=== PATIENT | female | born 1945 ===

== ENCOUNTER → 2018-08-07 | Outpatient (CLI) | payer MEDICARE, OTHER ==
--- NOTE | 2018-08-07 18:58 | WOMENS IMAGING REPORT ---
EXAM DESCRIPTION: BILAT SCREENING MAMMO W/CAD COMPLETED DATE/TIME: 08/07/2018 10:44 am REASON FOR STUDY: BILATERAL SCREENING MAMMO/Z12.31 Z12.31 ENCNTR SCREEN MAMMOGRAM FOR MALIGNANT WILFRED PLASM OF MELANIE COMPARISON: None available TECHNIQUE: Standard craniocaudal and mediolateral oblique views of each breast recorded using Truminima l acquisition. LIMITATIONS: None. FINDINGS: No masses, calcifications or architectural distortion. No areas of suspicion. Read with the assistance of CAD. .[facility] - R2 Cenova Version 1.3 .[facility] - R2 Cenova Version 1.3 .[facility] - R2 Cenova Version 2.4 .[facility] [place] Cenova Version 2.4 .[facility] - R2 [employer] Version 9.2 IMPRESSION: NORMAL MAMMOGRAM. BIRADS 1. BREAST DENSITY: b. There are scattered areas of fibroglandular density. BIRAD: 1 NEGATIVE RECOMMENDATION: ROUTINE SCREENING Please continue yearly bilateral screening mammography/tomosynthesis in July 2019 COMMENT: The patient has been notified of the results by letter per SA requirements. Additional no tification policies are in place for contacting patient with suspicious or incomplete findings. Quality ID #[id number]: The [employer] recommends an annual screening mammogram for women aged 40 years or over. This facility utilizes a reminder system to ensure that all patients receive reminder letters, and/or direct phone calls for appointments. This includes reminders for routine scr eening mammograms, diagnostic mammograms, or other Breast Imaging Interventions when appropriate. Th is patient will be placed in the appropriate reminder system. The [employer] (A[employer]) has developed recommendations for screening MRI of the breast s in certain patient populations, to be used in conjunction with mammography. Breast MRI surveillanc e may be appropriate for women with more than 20% lifetime risk of developing breast cancer as deter mined by genetic testing, significant family history of the disease, or history of mantle radiation f or Hodgkins Disease. ACR Practice Guidelines 2008. TECHNICAL DOCUMENTATION: FINDING NUMBER: (1) ASSESSMENT: (1) JOB ID: [id number] [employer]- All Rights Reserved Reading location - IP/workstation name: [email or web address]
== END ==
LOC: WI 10:04
PROVIDERS: ATTEND Family Medicine
DX: Z12.31 Encounter for screening mammogram for malignant neoplasm of breast (principal)
CPT/HCPCS: 77067

== ENCOUNTER 2020-02-19 15:42 | Emergency (ER) | payer MEDICARE ==
[2020-02-19] MEDS ORDERED: IPRATROPIUM/ALBUTEROL 0.5-2.5 MG/3 ML AMPUL NEB ONE ×2 (16:14→17:25)
--- NOTE | 2020-02-19 16:22 | ER Document Report ---
ED Respiratory Problem - General Chief Complaint: Shortness Of Breath Stated Complaint: SHORTNESS OF BREATH Time Seen by Provider: 02/19/20 15:57 Primary Care Provider: MERCY ZABALA MD [ACTIVE STAFF] - Follow up as needed LOUISE ATWOOD MD [ACTIVE PROVISIONAL STAFF] - Follow up as needed Notes: CHIEF COMPLAINT: Shortness of breath for 1 month HPI: 74-year-old female with history of hypertension and high cholesterol presenting to the emergency department complaining of progressive dyspnea with exertional activities over the last month. Patient has noticed wheezing over the last week. No fever. No known exposures to COVID positive patient's or recent travel. Denies leg pain. Denies any chest pain. States that she does have to go upstairs to get to her residence and has noticed increasing diffi culty with any exertion where she has to now stop and rest. States she has never seen a contracts intern and has never had a stress test. ROS: See HPI - all other systems were reviewed and are otherwise negative Constitutional: no fever Eyes: no drainage, no blurred vision ENT: no runny nose, no sore throat Cardiovascular: no chest pain Resp: + SOB, no cough GI: no vomiting, no diarrhea, no abdominal pain : no dysuria Integumentary: no rash Allergy: no hives Musculoskeletal: no extremity pain or swelling Neurological: no numbness/tingling, no weakness MEDICATIONS: I agree with the patient medications as charted by the RN. ALLERGIES: I agree with the allergies as charted by the RN. PAST MEDICAL HISTORY/PAST SURGICAL HISTORY: Reviewed and agree as charted by RN. SOCIAL HISTORY: Reviewed and agree as charted by RN. FAMILY HISTORY: No significant familial comorbid conditions directly related to patient complaint EXAM: Reviewed vital signs as charted by RN. CONSTITUTIONAL: Alert and oriented and responds appropriately to questions. Well-appearing; well-nourished HEAD: Normocephalic; atraumatic EYES: PERRL; Conjunctivae clear, sclerae non-icteric ENT: normal nose; no rhinorrhea; moist mucous membranes; pharynx without lesions noted, no uvula edema or deviation, no tonsillar hypertrophy, phonation normal NECK: Supple without meningismus; non-tender; no cervical lymphadenopathy, no masses CARD: RRR; no murmurs, no clicks, no rubs, no gallops; symmetric distal pulses RESP: Normal chest excursion without splinting or tachypnea; breath sounds noted to have wheezing on the right side, no rhonchi, no rales, pulse oximetry 93% on room air mildly hypoxic ABD/GI: Normal bowel sounds; non-distended; soft, non-tender, no rebound, no guarding; no palpable organomegaly or masses. BACK: The back appears normal and is non-tender to palpation, there is no CVA tenderness EXT: Normal ROM in all joints; non-tender to palpation; no cyanosis, no effusions, no edema SKIN: Normal color for age and race; warm; dry; good turgor; no acute lesions noted NEURO: Moves all extremities equally; Motor and sensory function intact PSYCH: The patient's mood and manner are appropriate. Grooming and personal hygiene are appropriate. MDM: 74-year-old female presenting with increasing dyspnea with exertional activities without chest pain over the last month, wheezing over the last week. Will obtain screening cardiac labs, has never had a stress test or other cardiac evaluation per the patient. Mildly dyspneic with speaking. Will give breathing treatment. Likely need admission for further evaluation TRAVEL OUTSIDE OF THE [place] IN LAST 30 DAYS: No Past Medical History - Social History Smoking Status: Unknown if Ever Smoked Family History: Reviewed & Not Pertinent Patient has homicidal ideation: No - Past Medical History Cardiac Medical History: Reports: Hx Hypertension Physical Exam - Vital signs Vitals: Resp Pulse Ox 19 94 02/19/20 15:43 02/19/20 15:43 Course - Re-evaluation Re-evalutation: 02/19/20 17:[address] valentin attending. Patient does feel slightly better after breathing treatment, still with wheezing on the right side. Chest x-ray suggests COPD exacerbation. Her initial cardiac screening labs are all normal. Discussed at length with the patient. Will give additional breathing treatment and steroids. Will have nursing ambulate the patient to reassess breathing. If patient still very dyspneic will likely need admission, if patient feels much better after steroids and breathing treatments will consider discharge with close follow-up 02/19/20 18:29 Patient ambulated to the bathroom and her pulse oximetry dropped to 88% on room air and she was mildly dyspneic. Will admit for COPD exacerbation 05/22/20 18:35 I spoke with Sylvia King the nurse practitioner with the hospitalist service. She still wishes the nurses to ambulate the patient in the hallway document the heart rate and pulse oximetry to see if it is sustained at which point patient can be admitted 02/19/20 18:45 Nursing ambulated the patient up and down the scruggs her pulse oximetry was 86% while ambulating, her heart rate was 115. Patient's pulse oximetry at rest improved to 91% on room air. Spoke with Sylvia, she will let Dr. Mukherjee the nighttime hospitalist know about the patient to have him call me to discuss. 02/19/20 20:[address] Mukherjee the hospitalist, we reviewed the patient's case including her pulse oximetry, clinical course. He does not feel patient warrants admission at this time. He believes that given the patient's quick recovery of her pulse oximetry after her walk that she can lightly tolerate steroids, inhalers at home over the next 2 days with reassessment or return if condition worsens. Does not wish to admit the patient at this time. Discussed at length with Dr. valentin attending. 02/19/20 20:32 I spoke with the patient at length. Pulse oximetry 93 to 94% at rest. Still slight wheezing on the right side. We discussed admission versus going home patient would prefer to go home if possible. Patient has been given steroids here will write patient for steroids at home per the hospitalist recommendation. Will give patient an inhaler here with a spacer with instructions on how to use it. Patient is aware that if she does not feel better within 48 hours she should return for reevaluation. Patient second troponin was normal. Patient has a primary care provider for close follow-up in 4 days if she is feeling better. Patient is comfortable with this plan. - Vital Signs Vital signs: Temp Pulse Resp BP Pulse Ox 98.4 F 19 157/85 H 93 02/19/20 16:02 02/19/20 18:41 02/19/20 18:41 02/19/20 18:40 - Laboratory Result Diagrams: 02/19/20 15:45 02/19/20 15:45 Laboratory results interpreted by me: 02/19/20 02/19/20 02/19/20 15:45 15:45 17:37 Eos % (Auto) 6.6 H Calcium 10.4 H Direct Bilirubin 0.6 H Urine Ketones TRACE H Ur Leukocyte Esterase MODERATE H Discharge - Discharge Clinical Impression: COPD exacerbation Dyspnea Qualifiers: Dyspnea type: dyspnea on exertion Qualified Code(s): R06.00 - Dyspnea, unspecified Condition: Stable Disposition: HOME, SELF-CARE Instructions: Bronchospasm ([facility]) Additional Instructions: Use the albuterol inhaler with a spacer 4 puffs every 4 hours for shortness of breath and wheezing. Take the steroids as prescribed. Follow-up with your primary care provider in 4 days for reevaluation of your symptoms if you are feeling better. If you have worsening symptoms return within the next 24 to 48 hours for reevaluation as discussed. You have also been given a referral to cardiology for further evaluation call to obtain appointment Prescriptions: Prednisone [Deltasone 20 mg Tablet] 2 tab PO DAILY 5 Days #10 tablet Albuterol Sulfate [Proair HFA Inhalation Aerosol 8.5 gm MDI] 2 puff IH Q4H PRN #1 mdi PRN Reason: Referrals: MERCY ZABALA MD [ACTIVE STAFF] - Follow up as needed LOUISE ATWOOD MD [ACTIVE PROVISIONAL STAFF] - Follow up as needed
[2020-02-19 16:26] LABS: INTERNATIONAL RATION (INR) 0.97; PROTHROMBIN TIME 12.8 SEC (11.4-15.4)
[2020-02-19 16:28] LABS: ALBUMIN 4.7 g/dL (3.5-5.0); ALKALINE PHOSPHATASE 91 U/L (38-126); ANION GAP 10 (5-19); ASPARTATE AMINO TRANSFERASE 26 U/L (14-36); BILIRUBIN,DIRECT 0.6 mg/dL (0.0-0.4); BILIRUBIN,TOTAL 0.6 mg/dL (0.2-1.3); BLOOD UREA NITROGEN 12 mg/dL (7-20); CALCIUM 10.4 mg/dL (8.4-10.2); CARBON DIOXIDE 28 mmol/L (22-30); CHLORIDE 100 mmol/L (98-107); GLUCOSE 106 mg/dL (75-110)
[2020-02-19 16:29] LABS: ABSOLUTE BASOPHILS # (AUTO) 0.1 10^3/uL (0.0-0.2); ABSOLUTE EOSINOPHILS # (AUTO) 0.5 10^3/uL (0.0-0.6); ABSOLUTE LYMPHOCYTES (AUTO) 1.7 10^3/uL (0.5-4.7); ABSOLUTE MONOCYTES (AUTO) 0.8 10^3/uL (0.1-1.4); ABSOLUTE NEUT (AUTO) 4.6 10^3/uL (1.7-8.2); BASOPHILS % (AUTO) 1.4 % (0-2); EOSINOPHILS % (AUTO) 6.6 % (0-6); HEMATOCRIT 43.1 % (36.0-47.0); HEMOGLOBIN 14.4 g/dL (12.0-15.5); LYMPHOCYTES % (AUTO) 22.1 % (13-45); MEAN CORPUSCULAR HEMOGLOBIN 30.8 pg (27.0-33.4); MEAN CORPUSCULAR HGB CONC 33.4 g/dL (32.0-36.0); MEAN CORPUSCULAR VOLUME 92 fl (80-97); MONOCYTES % (AUTO) 10.4 % (3-13); PLATELET COUNT 270 10^3/uL (150-450); RED BLOOD COUNT 4.67 10^6/uL (3.72-5.28); RED CELL DISTRIBUTION WIDTH 12.9 % (11.5-14.0); SEGMENTED NEUTROPHILS % (AUTO) 59.5 % (42-78); TOTAL CELLS COUNTED % (AUTO) 100 %; WHITE BLOOD COUNT 7.7 10^3/uL (4.0-10.5)
[2020-02-19 16:40] LABS: D-DIMER 0.27 ug/mL (0.00-0.50); NT PRO BNP 35 pg/mL (<450)
[2020-02-19 16:46] LABS: TROPONIN I < 0.012 ng/mL
--- NOTE | 2020-02-19 17:00 | RADIOLOGY REPORT (SQ) ---
EXAM DESCRIPTION: CHEST SINGLE VIEW IMAGES COMPLETED DATE/TIME: 02/19/2020 4:34 pm REASON FOR STUDY: sob COMPARISON: None. NUMBER OF VIEWS: One view. TECHNIQUE: Single frontal radiographic view of the chest acquired. LIMITATIONS: None. FINDINGS: LUNGS AND PLEURA: No opacities, masses or pneumothorax. No pleural effusion. Attenuated bl ood vessels and flattened giuliano-diaphragms. MEDIASTINUM AND HILAR STRUCTURES: No masses. Contour normal. HEART AND VASCULAR STRUCTURES: Heart normal in size. Normal vasculature. BONES: No acute findings. HARDWARE: None in the chest. OTHER: No other significant finding. IMPRESSION: COPD. NO ACUTE RADIOGRAPHIC FINDING IN THE CHEST. TECHNICAL DOCUMENTATION: JOB ID: [id number] 2010 [employer]- All Rights Reserved Reading location - IP/workstation name: [email or web address]
[2020-02-19] MEDS ORDERED: PREDNISONE 20 MG TABLET PO ONE (17:15)
[2020-02-19 18:25] LABS: APPEARANCE,URINE SLIGHTLY-CLOUDY; BILIRUBIN,URINE NEGATIVE (NEGATIVE); COLOR,URINE AMBER; GLUCOSE, URINE NEGATIVE (NEGATIVE); KETONES,URINE TRACE mg/dL (NEGATIVE); LEUKOCYTE ESTERASE,URINE MODERATE (NEGATIVE); NITRITE,URINE NEGATIVE (NEGATIVE); PROTEIN,URINE NEGATIVE (NEGATIVE); URINE SPECIFIC GRAVITY 1.012; UROBILINOGEN,URINE NEGATIVE mg/dL (<2.0)
--- NOTE | 2020-02-19 18:51 | EKG REPORT ---
SEVERITY:- BORDERLINE ECG - SINUS RHYTHM CONSIDER ANTERIOR INFARCT : Confirmed by: Colleen Cooper MD 19-Feb-2020 18:49:19
[2020-02-19] MEDS ORDERED: ALBUTEROL SULFATE HFA (90 MCG/PUFF) 8 GM MDI (1 MDI/ER DISP) IH SCH (20:45)
[2020-02-19 21:42] VITALS: BP 157/77
== END 2020-02-19 21:43 | disposition home or self-care (01) ==
LOC: ER 15:42
DX: J44.1 Chronic obstructive pulmonary disease with (acute) exacerbation (principal); R06.00 Dyspnea, unspecified; R06.02 Shortness of breath; I10 Essential (primary) hypertension
CPT/HCPCS: 93005; 94640 ×2; 99284; 36415; 85025; 85610; 80053; 81001; 84484; 85379; 83880; 71045; 93010; U0003; A9270 ×2; 87635; J7512; J7620

== ENCOUNTER 2020-07-11 07:15 | Emergency (ER) | payer MEDICARE ==
--- NOTE | 2020-07-11 08:04 | EKG REPORT ---
SEVERITY:- BORDERLINE ECG - SINUS RHYTHM BORDERLINE R WAVE PROGRESSION, ANTERIOR LEADS BORDERLINE T ABNORMALITIES, ANT-LAT LEADS : Confirmed by: Tito Herrera 11-Jul-2020 08:04:29
[2020-07-11 08:25] LABS: ABSOLUTE BASOPHILS # (AUTO) 0.1 10^3/uL (0.0-0.2); ABSOLUTE EOSINOPHILS # (AUTO) 0.8 10^3/uL (0.0-0.6); ABSOLUTE LYMPHOCYTES (AUTO) 1.1 10^3/uL (0.5-4.7); ABSOLUTE MONOCYTES (AUTO) 0.7 10^3/uL (0.1-1.4); ABSOLUTE NEUT (AUTO) 5.4 10^3/uL (1.7-8.2); BASOPHILS % (AUTO) 1.1 % (0-2); HEMATOCRIT 41.4 % (36.0-47.0); LYMPHOCYTES % (AUTO) 14.1 % (13-45); MEAN CORPUSCULAR HEMOGLOBIN 30.5 pg (27.0-33.4); MEAN CORPUSCULAR HGB CONC 33.9 g/dL (32.0-36.0); MEAN CORPUSCULAR VOLUME 90 fl (80-97); MONOCYTES % (AUTO) 8.2 % (3-13); PLATELET COUNT 292 10^3/uL (150-450); RED BLOOD COUNT 4.59 10^6/uL (3.72-5.28); SEGMENTED NEUTROPHILS % (AUTO) 66.6 % (42-78); TOTAL CELLS COUNTED % (AUTO) 100 %; WHITE BLOOD COUNT 8.1 10^3/uL (4.0-10.5)
--- NOTE | 2020-07-11 08:32 | ER Document Report ---
ED Respiratory Problem - General Chief Complaint: Shortness Of Breath Stated Complaint: SHORT OF BREATH,COUGH,HEADACHE Time Seen by Provider: 07/11/20 07:55 Primary Care Provider: ALE SKINNER PA-C [Primary Care Provider] - Follow up as needed Notes: HPI: 75-year-old female with a long smoking history presents today with some "wheezing" and shortness of breath this morning. She denies any chest pain, fever, calf pain or leg swelling. She is not on oxygen at home. She states she has never been diagnosed with emphysema. She states she had a previous presentation and was evaluated here. She has not taken any nebulizers at this time. ROS: See HPI All other review of systems reviewed and otherwise negative Reviewed vital signs and nursing note as charted by RN. PHYSICAL EXAM: CONSTITUTIONAL: Alert and oriented and responds appropriately to questions. Well-appearing; well-nourished HEAD: Normocephalic; atraumatic EYES: PERRL; Conjunctivae clear, sclerae non-icteric ENT: Normal nose; no rhinorrhea; moist mucous membranes; pharynx without lesions noted NECK: Supple without meningismus; non-tender; no cervical lymphadenopathy, no masses CARD: Regular rate and rhythm with a heart rate currently of 88; no murmurs; symmetric distal pulses RESP: Normal chest excursion without splinting or tachypnea; breath sounds clear and equal bilaterally; bilateral wheezing without rhonchi or rales ABD/GI: Normal bowel sounds; non-distended; soft, non-tender; no palpable organomegaly or masses BACK: The back appears normal and is non-tender to palpation EXT: Normal ROM in all joints; non-tender to palpation; no edema SKIN: No acute lesions noted NEURO: CN 2-12 intact; 5/5 bilateral upper and lower extremity strength with sensation intact to light touch PSYCH: The patient's mood and manner are appropriate. Grooming and personal hygiene are appropriate. TRAVEL OUTSIDE OF THE [place] IN LAST 30 DAYS: No - Related Data Allergies/Adverse Reactions: No Known Allergies Allergy (Verified 07/11/20 07:23) Home Medications: cholesterol. htn. cant recall names of medications Past Medical History - Social History Smoking Status: Former Smoker Chew tobacco use (# tins/day): No Frequency of alcohol use: Occasional Drug Abuse: None Family History: Reviewed & Not Pertinent Patient has homicidal ideation: No - Past Medical History Cardiac Medical History: Reports: Hx Hypercholesterolemia, Hx Hypertension GI Medical History: Reports: Hx Gastroesophageal Reflux Disease Physical Exam - Vital signs Vitals: Temp Pulse Resp BP Pulse Ox 97.6 F 118 H 24 H 145/76 H 94 07/11/20 07:22 07/11/20 07:22 07/11/20 07:22 07/11/20 07:22 07/11/20 07:22 Course - Re-evaluation Re-evalutation: Given the history and physical examination with absolutely no chest pain, no lower extremity edema or calf pain, with some wheezing and a long smoking history, I do believe PE and dissection to be unlikely. We will obtain a cardiac panel, x-ray of the chest, coronavirus testing, provide duo nebulizers a nd steroids. I will reassess the patient's lungs. 07/11/20 08:31 EKG shows heart of 86, normal sinus rhythm, normal axis, no obvious ST elevation or depression. Poor R wave progression. 07/11/20 09:00 Reviewing the patient's chart it appears that the patient was seen in January of this past year with a similar presentation with wheezing. She was treated as a COPD exacerbation and sent home on steroids and an inhaler. 07/11/20 10:15 Wheezing is greatly improved with the nebulizers. Patient states she feels "much better". Leukocytes noted in the urine. Patient has no abdominal pain, fevers, or dysuria. Urine culture will be sent. We will start the patient on a course of Keflex. Patient will be provided an albuterol inhaler with 4 days of steroids with strict return precautions and follow-up with the primary care physician. Heart rate is currently 88. - Vital Signs Vital signs: Temp Pulse Resp BP Pulse Ox 97.6 F 118 H 24 H 145/76 H 95 07/11/20 07:23 07/11/20 07:22 07/11/20 07:22 07/11/20 07:22 07/11/20 08:22 - Laboratory Result Diagrams: 07/11/20 08:07 07/11/20 08:07 Laboratory results interpreted by me: 07/11/20 07/11/20 07/11/20 08:07 08:07 08:37 Eos % (Auto) 10.0 H Absolute Eos (auto) 0.8 H Potassium 3.3 L Carbon Dioxide 32 H Glucose 118 H Direct Bilirubin 0.5 H Urine Blood MODERATE H Ur Leukocyte Esterase LARGE H Discharge - Discharge Clinical Impression: COPD with exacerbation, Leukocytes in urine Condition: Good Disposition: HOME, SELF-CARE Additional Instructions: Come back immediately for any chest pain, worsening shortness of breath, leg swelling, abdominal or flank pain, or any other acute problems. Please make sure that you take the antibiotics as prescribed and follow-up with your primary care physician regarding a reassessment of your urine, the urine culture we have sent, and your breathing. Please take 2 puffs every 4-6 hours for the next 48 hours and then every 6 hours as needed after that. Please complete the course of steroids and antibiotics we have provided. Prescriptions: Prednisone [Deltasone 20 mg Tablet] 3 tab PO DAILY 4 Days #12 tablet Cephalexin Monohydrate [Keflex 500 mg Capsule] 500 mg PO Q6H 5 Days capsule Referrals: ALE SKINNER PA-C [Primary Care Provider] - Follow up as needed
--- NOTE | 2020-07-11 08:37 | RADIOLOGY REPORT (SQ) ---
EXAM DESCRIPTION: CHEST SINGLE VIEW IMAGES COMPLETED DATE/TIME: 07/11/2020 7:21 am REASON FOR STUDY: shortness of breath COMPARISON: 02/19/2020 EXAM PARAMETERS: NUMBER OF VIEWS: One view. TECHNIQUE: Single frontal radiographic view of the chest acquired. RADIATION DOSE: NA LIMITATIONS: None. FINDINGS: LUNGS AND PLEURA: Lungs are hyperinflated. No focal consolidation or pleural effusion. N o pneumothorax. MEDIASTINUM AND HILAR STRUCTURES: No masses. Contour normal. HEART AND VASCULAR STRUCTURES: Heart normal in size. Normal vasculature. BONES: No acute findings. HARDWARE: None in the chest. OTHER: No other significant finding. IMPRESSION: Hyperinflated lungs which can be seen with obstructive lung disease. No acute cardiopul monary disease. TECHNICAL DOCUMENTATION: JOB ID: [id number] [employer]- All Rights Reserved Reading location - IP/workstation name: [email or web address]
[2020-07-11] MEDS ORDERED: METHYLPREDNISOLONE INJ 125 MG/2 ML SDV IV ONE (08:42)
[2020-07-11 08:44] LABS: ALBUMIN 4.5 g/dL (3.5-5.0); ALKALINE PHOSPHATASE 89 U/L (38-126); ANION GAP 10 (5-19); ASPARTATE AMINO TRANSFERASE 22 U/L (14-36); BILIRUBIN,DIRECT 0.5 mg/dL (0.0-0.4); BILIRUBIN,TOTAL 0.7 mg/dL (0.2-1.3); BLOOD UREA NITROGEN 11 mg/dL (7-20); CALCIUM 10.1 mg/dL (8.4-10.2); CARBON DIOXIDE 32 mmol/L (22-30); CHLORIDE 99 mmol/L (98-107); GLUCOSE 118 mg/dL (75-110); POTASSIUM 3.3 mmol/L (3.6-5.0); TOTAL PROTEIN 7.3 g/dL (6.3-8.2)
[2020-07-11] MEDS: IPRATROPIUM/ALBUTEROL 0.5-2.5 MG/3 ML AMPUL NEB SCH ×2 (08:53→09:42)
[2020-07-11 08:59] LABS: APPEARANCE,URINE CLOUDY; BILIRUBIN,URINE NEGATIVE (NEGATIVE); COLOR,URINE YELLOW; GLUCOSE, URINE NEGATIVE (NEGATIVE); KETONES,URINE NEGATIVE (NEGATIVE); LEUKOCYTE ESTERASE,URINE LARGE (NEGATIVE); NITRITE,URINE NEGATIVE (NEGATIVE); PROTEIN,URINE NEGATIVE (NEGATIVE); UROBILINOGEN,URINE NEGATIVE mg/dL (<2.0)
[2020-07-11] MEDS ORDERED: CEFTRIAXONE 1 GM/D5W RTU 1 GM/50 ML RTUPB IV ONE (10:14)
[2020-07-11] MEDS ORDERED: ALBUTEROL SULFATE HFA (90 MCG/PUFF) 8 GM MDI (1 MDI/ER DISP) IH SCH (10:30)
[2020-07-11 11:11] VITALS: BP 177/77
== END 2020-07-11 11:11 | disposition home or self-care (01) ==
LOC: ER 07:15
DX: J44.1 Chronic obstructive pulmonary disease with (acute) exacerbation (principal); R51.9 Headache, unspecified; R82.998 Other abnormal findings in urine; Z20.828 Contact with and (suspected) exposure to other viral communicable diseases; E78.00 Pure hypercholesterolemia, unspecified; I10 Essential (primary) hypertension
CPT/HCPCS: 93005; 94640 ×2; 99285; 96375; 96365; 36415; 87086; 85025; 87088; 80053; 81001; 84484; 87186; 71045; 93010; U0003; J2930; J0696; A9270; C9803; 87635; J3490